=== PATIENT | male | born 1975 | race Two or more races ===

== ENCOUNTER 2018-10-05 06:04 | Emergency (ER) | payer SELFPAY ==
[~2018-10-05] VITALS: Ht 182.9 cm; Wt 90.7 kg
--- NOTE | 2018-10-05 06:10 | NUR ---
ED Nurse Note: Anal discomfort x4 days. Denies injury & bleeding from area. Reports discharge & issues with defecation. AO4. NAD. Denies SOB. Attached to monitor. VSS. ERMD at bedside.
[2018-10-05 06:27] VITALS: BP 132/74
--- NOTE | 2018-10-05 06:31 | Emergency Room Report ---
History of Present Illness General Chief Complaint: Pain Source: Patient Present Illness HPI Patient is a 43-year-old male who presented after increased rectal pain. Patient reports having onset of symptoms approximately 3 days prior to arrival. He reports having rectal intercourse approximately 12 days ago. He denies any fever. He reports of increased urinary hesitancy. He reports having some feeling of rectal fullness. He denies any vomiting. He reports taking Truvada for HIV prophylaxis but is not HIV positive. Pain was described as a burning sensation. He reports using Preparation H without any improvement. Allergies: Coded Allergies: No Known Allergies (Unverified , 10/05/18) Patient History Past Medical History: see triage record Reviewed Nursing Documentation: PMH: Agreed; PSxH: Agreed Nursing Documentation-PMH Past Medical History: No Stated History Review of Systems All Other Systems: negative except mentioned in HPI Physical Exam Vital Signs Date Time Temp Pulse Resp B/P (MAP) Pulse Ox O2 Delivery O2 Flow Rate FiO2 10/05/18 06:07 99.3 87 19 132/74 98 Room Air General Appearance: well appearing, no apparent distress, alert, GCS 15 Head: normocephalic, atraumatic ENT: hearing grossly normal, normal voice Neck: full range of motion, supple Respiratory: no respiratory distress, speaking full sentences Cardiovascular #1: normal inspection, regular rate, rhythm Gastrointestinal: normal inspection, non tender Rectal: normal exam, prostate non-tender Musculoskeletal: normal inspection, back normal, digits/nails normal, no calf tenderness Neurologic: normal inspection, alert, oriented x3, 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 Differential diagnosis include was not limited to proctitis, prostatitis, colon cancer, among others. Patient has a benign exam and does not appear to require any further imaging or laboratory testing at this time. Patient appears to have some nonspecific irritation to his rectal area. There did not appear to be any bleeding at this time. Patient does not appear to have any evidence of external hemorrhoids. Rectal exam is essentially normal. Patient will be empirically treated for procttitis given his symptomatology. The patient is advised to follow up with primary care doctor in 1-2 days for recheck. Patient was advised to use sunscreen . patient is advised to return if any worsening condition or if any changes in status that are concerning. This report is dictated with [employer] process equipment operator software which may occasionally lead to discrepancies related to use of this software. Last Vital Signs Date Time Temp Pulse Resp B/P (MAP) Pulse Ox O2 Delivery O2 Flow Rate FiO2 10/05/18 06:07 99.3 87 19 132/74 98 Room Air Status: improved Disposition: HOME, SELF-CARE Condition: Stable Scripts Lidocaine (ANECREAM) 5 Gm Cream..g. 5 GM TP DAILY for pain, #5 GM Prov: Kamar Tatum MD 10/05/18 Doxycycline Hyclate* (VIBRAMYCIN*) 100 Mg Capsule 100 MG ORAL EVERY 12 HOURS, #20 CAP 0 Refills Prov: Kamar Tatum MD 10/05/18 Kamar Tatum MD Oct 05, 2018 06:31
[2018-10-05] MEDS ORDERED: ANECREAM5 GM TP (06:36)
[2018-10-05] MEDS ORDERED: VIBRAMYCIN100 MG ORAL (06:36)
[2018-10-05 06:44] VITALS: BP 132/74
--- NOTE | 2018-10-05 06:44 | NUR ---
ED Nurse Note: Patient cleared for discharge per ERMD. AO4. NAD. VSS. Patient given prescriptions and discharge instructions; verbalized understanding. ID band removed. Patient ambulated out with all personal belongings with steady gait.
[2018-10-05] MEDS ORDERED: Lidocaine 1% MPF 10mg/ml 5ml INJ ONE (06:45)
[2018-10-05 06:53] LABS: APPEARANCE,URINE CLEAR; BILIRUBIN, URINE NEGATIVE (NEGATIVE); COLOR,URINE PALE YELLOW; GLUCOSE, URINE (UA) NEGATIVE (NEGATIVE); KETONES,URINE NEGATIVE (NEGATIVE); LEUKOCYTE ESTERASE ,URINE NEGATIVE (NEGATIVE); NITRITE,URINE NEGATIVE (NEGATIVE); PH,URINE 7 (4.5-8.0); PROTEIN,URINE NEGATIVE (NEGATIVE); UROBILINOGEN,URINE NORMAL MG/DL (0.0-1.0)
== END 2018-10-05 06:43 | disposition home or self-care (01) ==
LOC: EMR 06:30
DX: K62.89 Other specified diseases of anus and rectum (principal)
CPT/HCPCS: 81003; 96372; 99283; J0696